=== PATIENT | female | born 1980 | race Caucasian/White ===

== ENCOUNTER 2020-02-15 22:15 | Emergency (ER) | payer BC ==
[2020-02-15 23:35] LABS: #Basophils 0.1 thou/uL (0.0-0.2); #Eosinphils 0.4 thou/uL (0.0-0.7); #Lymphocytes 2.6 thou/uL (1.20-3.40); #Monocytes 0.5 thou/uL (0.11-0.59); #Neutrophils 3.8 thou/uL (1.40-6.50); %Basophils 0.8 % (0.0-1.0); %Lymphocytes 35.8 % (21.0-51.0); %Monocytes 6.5 % (0.0-10.0); %Neutrophils 51.9 % (42.0-75.0); Hemoglobin 15.1 g/dL (12.0-16.0); Mean Corpuscular HGB CONC 34.1 g/dL (32.0-36.0); Mean Corpuscular Hemoglobin 31.4 pg (27.0-31.0); Mean Corpuscular Volume 92.1 fL (78.0-98.0); Mean Platelet Volume 6.2 fL (7.4-10.4); Platelet Count 301 thou/uL (130-400); RBC Distribution Width 11.6 % (11.5-14.5); Red Blood Cell (RBC) Count 4.81 mill/uL (4.20-5.40); White Blood Cell (WBC) Count 7.3 thou/uL (4.8-10.8)
[2020-02-15 23:49] LABS: ALT (SGPT) 19 U/L (8-55); AST (SGOT) 19 U/L (5-34); Alkaline Phosphatase 39 U/L (40-110); Anion Gap 13 mmol/L (10-20); BUN (Urea Nitrogen) 17 mg/dL (7.0-18.7); Bilirubin, Total 0.8 mg/dL (0.2-1.2); Calc. Creatinine Clearance 0 mL/min (70-130); Calcium 9.3 mg/dL (7.8-10.44); Carbon Dioxide 26 mmol/L (22-29); Chloride 106 mmol/L (98-107); Estimated GFR-MDRD 65; Globulin 2.4 g/dL (2.4-3.5); Glucose 97 mg/dL (70-105); Potassium 3.5 mmol/L (3.5-5.1); Protein, Total 6.4 g/dL (6.0-8.3); Sodium 141 mmol/L (136-145)
[2020-02-16] MEDS ORDERED: Acetaminophen 500 MG TAB ONE (00:40)
[2020-02-16] MEDS ORDERED: Ketorolac Tromethamine 30 MG/ML VIAL ONE (01:52)
[2020-02-16] MEDS ORDERED: Prochlorperazine 10 MG/2 ML VIAL IVP SCH (02:15)
--- NOTE | 2020-02-16 07:07 | RAD ---
SINGLE VIEW CHEST: Date: 02/15/2020 COMPARISON: None. HISTORY: Right leg pain and chest pain with dizziness. FINDINGS: Single view of the chest shows a normal sized cardiomediastinal silhouette. There is no evidence of c onsolidation, mass, or pleural effusion. The bones are unremarkable. IMPRESSION: No evidence of acute cardiopulmonary disease. POS: EAA
--- NOTE | 2020-02-16 08:24 | CT ---
PRELIMINARY REPORT/[facility]/EMERGENCY AFTER HOURS PROCEDURE EXAM: CTA Head and Neck with Intravenous Contrast. CLINICAL HISTORY: PT WATCHING TV, HAD SPONTANEOUS HEADACHE AND DIZZINESS FOLLOWED BY CHEST PAIN. TECHNIQUE: Axial CTA images of the head and neck performed with intravenous contrast. Two-dimensional MIP and/or three-dimensional MIP and volume rendered reformations were performed. Note: Per PQRS, the description of internal carotid artery percent stenosis, including 0 percent or n ormal exam, is based on [place] Symptomatic Carotid Endarterectomy Trial (NASCET) criteria. CONTRAST: With; ISOVUE 370,100mL COMPARISON: CT - CT BRAIN WO CON - 02/16/2020 12:02 AM COMMERCIAL PRODUCER FINDINGS: CTA NECK: COMMON CAROTID ARTERIES No significant stenosis. No dissection or occlusion. INTERNAL CAROTID ARTERIES No stenosis by NASCET criteria. No dissection or occlusion. VERTEBRAL ARTERIES No significant stenosis. No dissection or occlusion. CTA HEAD: ANTERIOR CEREBRAL ARTERIES No significant stenosis. No occlusion. No aneurysm. MIDDLE CEREBRAL ARTERIES No significant stenosis. No occlusion. No aneurysm. POSTERIOR CEREBRAL ARTERIES No significant stenosis. No occlusion. No aneurysm. BASILAR ARTERY No significant stenosis. No occlusion. No aneurysm. OTHER: SOFT TISSUES No acute finding. No masses or lymphadenopathy. Mild bilateral maxillary, right frontal and ethmoid sinus mucosal wall thickening. BONES No acute osseous abnormality. IMPRESSION: 1. Unremarkable CTA of the head and neck. 2. Mild right frontal, ethmoid, and bilateral maxillary sinus mucosal wall thickening. No air-fluid levels. ELECTRONICALLY SIGNED BY: Marvin Giron DO Feb 16, 2020 1:33:48 AM COMMERCIAL PRODUCER This report is intended for review by the ordering physician only, in accordance of law. If you recei ve this report in error, please call [facility] at [phone]. FINAL REPORT Final report by Dr. Catrer Emergency after-hours study CT ANGIOGRAM NECK WITH CONTRAST CT ANGIOGRAM BRAIN WITH CONTRAST: DATE: 02/16/2020 1:16 AM HISTORY: 39-year-old female with sudden onset headache and dizziness TECHNIQUE: After IV contrast injection, arterial bolus chasing technique scan performed from AP window to vertex of head. Coronal and sagittal 3-D MIP reconstructions. FINDINGS: All major arteries of neck and all major intracranial arteries of [place] appear normal. No evidence of dural venous sinus thrombosis. Mild mucosal thickening in bilateral maxillary sinuses. Otherwise normal. Agree with preliminary report by [facility]. IMPRESSION: Normal. Transcribed Date/Time: 02/16/2020 8:28 AM
--- NOTE | 2020-02-16 08:29 | CT ---
PRELIMINARY REPORT/[facility]/EMERGENCY AFTER HOURS PROCEDURE EXAM: CT Head Without Intravenous Contrast. CLINICAL HISTORY: Pt presents with chest pain and dizziness// TECHNIQUE: Axial computed tomography images of the head/brain without intravenous contrast. COMPARISON: None provided. FINDINGS: BRAIN: No acute intraparenchymal hemorrhage. No mass lesion. No CT evidence for acute territorial infarct. N o midline shift or extra-axial collection. VENTRICLES: No hydrocephalus. ORBITS: The orbits are unremarkable. SINUSES AND MASTOIDS: The paranasal sinuses and mastoid air cells are clear. SOFT TISSUES: No significant facial or scalp soft tissue swelling evident. No radiopaque foreign body is seen. BONES: No acute skull fracture. IMPRESSION: No acute intracranial abnormality. ELECTRONICALLY SIGNED BY: Marvin Giron DO Feb 16, 2020 12:11:43 AM SAFE DEPOSIT ATTENDANT This report is intended for review by the ordering physician only, in accordance of law. If you recei ve this report in error, please call [facility] at [phone]. FINAL REPORT Exam: Head CT without contrast HISTORY: Dizziness. Pain. COMPARISON: none FINDINGS: Hemorrhage: No intraparenchymal hemorrhage or extra-axial hematoma. Brain parenchyma: Cortical gonzalez-white matter differentiation is preserved. No mass effect or midline shift. Basilar cisterns are patent. Ventricular system: Ventricles and sulci are patent and symmetric. Calvarium: Intact. Sinuses and mastoid air cells: Adequate aeration. IMPRESSION: 1. This report is in agreement with initial report by [facility]. 2. No acute intracranial process. Transcribed Date/Time: 02/16/2020 8:36 AM
--- NOTE | 2020-02-16 15:37 | CT ---
PRELIMINARY REPORT/[facility]/EMERGENCY AFTER HOURS PROCEDURE EXAM: CTA Head and Neck with Intravenous Contrast. CLINICAL HISTORY: PT WATCHING TV, HAD SPONTANEOUS HEADACHE AND DIZZINESS FOLLOWED BY CHEST PAIN. TECHNIQUE: Axial CTA images of the head and neck performed with intravenous contrast. Two-dimensional MIP and/or three-dimensional MIP and volume rendered reformations were performed. Note: Per PQRS, the description of internal carotid artery percent stenosis, including 0 percent or n ormal exam, is based on [place] Symptomatic Carotid Endarterectomy Trial (NASCET) criteria. CONTRAST: With; ISOVUE 370,100mL COMPARISON: CT - CT BRAIN WO CON - 02/16/2020 12:02 AM MEDIA PLANNER FINDINGS: CTA NECK: COMMON CAROTID ARTERIES No significant stenosis. No dissection or occlusion. INTERNAL CAROTID ARTERIES No stenosis by NASCET criteria. No dissection or occlusion. VERTEBRAL ARTERIES No significant stenosis. No dissection or occlusion. CTA HEAD: ANTERIOR CEREBRAL ARTERIES No significant stenosis. No occlusion. No aneurysm. MIDDLE CEREBRAL ARTERIES No significant stenosis. No occlusion. No aneurysm. POSTERIOR CEREBRAL ARTERIES No significant stenosis. No occlusion. No aneurysm. BASILAR ARTERY No significant stenosis. No occlusion. No aneurysm. OTHER: SOFT TISSUES No acute finding. No masses or lymphadenopathy. Mild bilateral maxillary, right frontal and ethmoid sinus mucosal wall thickening. BONES No acute osseous abnormality. IMPRESSION: 1. Unremarkable CTA of the head and neck. 2. Mild right frontal, ethmoid, and bilateral maxillary sinus mucosal wall thickening. No air-fluid levels. ELECTRONICALLY SIGNED BY: Marvin Giron DO Feb 16, 2020 1:33:48 AM MEDIA PLANNER This report is intended for review by the ordering physician only, in accordance of law. If you recei ve this report in error, please call [facility] at [phone]. FINAL REPORT Final report by Dr. Carter Emergency after-hours study CT ANGIOGRAM NECK WITH CONTRAST CT ANGIOGRAM BRAIN WITH CONTRAST: DATE: 02/16/2020 1:16 AM HISTORY: 39-year-old female with sudden onset headache and dizziness TECHNIQUE: After IV contrast injection, arterial bolus chasing technique scan performed from AP window to vertex of head. Coronal and sagittal 3-D MIP reconstructions. FINDINGS: All major arteries of neck and all major intracranial arteries of [place] appear normal. No evidence of dural venous sinus thrombosis. Mild mucosal thickening in bilateral maxillary sinuses. Otherwise normal. Agree with preliminary report by [facility]. IMPRESSION: Normal. Transcribed Date/Time: 02/16/2020 3:36 PM
== END 2020-02-16 02:50 | disposition home or self-care (01) ==
LOC: ERS 22:15
DX: R51.9 Headache, unspecified (principal); R07.9 Chest pain, unspecified
CPT/HCPCS: 70450; 70496; 70498; 71045; 80053; 84484; 85025; 85379; 93005; 96374; J0780; J1885

== ENCOUNTER 2020-02-17 16:23 | Outpatient (CLI) | payer BC ==
--- NOTE | 2020-02-17 17:07 | ULT ---
RIGHT LOWER EXTREMITY VENOUS DUPLEX EXAM: 02/17/20 Deep veins of the right lower extremity evaluated with ultrasound and Doppler with color Doppler, spe ctral analysis and compression. INDICATIONS: Elevated D-dimer. Right lower extremity pain and edema. Deep veins of the right lower extremity show normal blood flow and compression. No evidence of DVT. IMPRESSION: No evidence of right lower extremity DVT. POS: AGW
== END 2020-02-17 16:24 | disposition home or self-care (01) ==
LOC: BICULT 16:23
PROVIDERS: ATTEND Family Medicine
DX: M79.604 Pain in right leg (principal)

== ENCOUNTER 2021-02-11 14:26 | Outpatient (CLI) | payer BC | END 2021-02-11 14:27 | disposition home or self-care (01) | LOC: BICCT 14:26 | PROVIDERS: ATTEND Family Medicine | DX: R51.9 Headache, unspecified (principal); R42 Dizziness and giddiness; R29.898 Other symptoms and signs involving the musculoskeletal system | CPT/HCPCS: 70450 ==

== ENCOUNTER 2021-02-21 11:58 | Outpatient (CLI) | payer BC | END 2021-02-21 11:59 | disposition home or self-care (01) | LOC: SCSMRI 11:58 | PROVIDERS: ATTEND Psychiatry & Neurology Epilepsy | DX: M47.22 Other spondylosis with radiculopathy, cervical region (principal); M50.10 Cervical disc disorder with radiculopathy, unspecified cervical region; M48.02 Spinal stenosis, cervical region | CPT/HCPCS: 72156 ==

== ENCOUNTER 2021-05-17 09:17 | Day surgery (SDC) | payer BC ==
[2021-05-14 13:58] VITALS: BMI 26.5
[2021-05-17] MEDS ORDERED: Midazolam HCl 2 mg/2 ml Vial ONE (10:21)
[2021-05-17] MEDS ORDERED: Fentanyl 250 MCG/5 ML VIAL ONE ×2 (10:46→12:40)
[2021-05-17] MEDS ORDERED: Xylocaine 1% w/ Epi 1:100K 10 ML VIAL ONE (10:57)
[2021-05-17] MEDS ORDERED: Bupivacaine 0.25% HCL 30 ML VIAL ONE (10:57)
[2021-05-17] MEDS ORDERED: Iothalamate Meglumine 60% 50 ML VIAL FS ONE (10:57)
[2021-05-17] MEDS ORDERED: Ondansetron PF 4 MG/2 ML Vial ONE (11:27)
[2021-05-17] MEDS ORDERED: Lidocaine 1% PF 5 ML VIAL ONE (11:27)
[2021-05-17] MEDS ORDERED: Dexamethasone 20 MG/5 ML VIAL ONE (11:27)
[2021-05-17] MEDS ORDERED: Rocuronium Bromide 10 MG/ML (10ML VIAL) ONE (11:27)
[2021-05-17] MEDS ORDERED: ePHEDrine 50 MG/ML VIAL ONE (11:27)
[2021-05-17] MEDS ORDERED: PROPOFOL 200 MG/20 ML VIAL ONE (11:27)
[2021-05-17] MEDS ORDERED: Glycopyrrolate 0.2 MG/ML 5 ML SYRINGE ONE (11:27)
[2021-05-17] MEDS ORDERED: Ketorolac Tromethamine 30 MG/ML VIAL ONE (11:27)
[2021-05-17] MEDS ORDERED: Promethazine HCl 25 MG/ML VIAL ONE (14:21)
[2021-05-17] MEDS ORDERED: HYDROcodone/Acetaminophen 5/325 mg Tablet ONE (15:04)
== END 2021-05-17 15:43 | disposition home or self-care (01) ==
LOC: SDC 09:17
PROVIDERS: ATTEND Surgery
PROC: BF121ZZ Fluoroscopy of Gallbladder using Low Osmolar Contrast (ICD-10-PCS; principal; 2021-05-17)
PROC: 0FT44ZZ Resection of Gallbladder, Percutaneous Endoscopic Approach (ICD-10-PCS; principal; 2021-05-17)
DX: K80.10 Calculus of gallbladder with chronic cholecystitis without obstruction (principal); B00.1 Herpesviral vesicular dermatitis; Z79.899 Other long term (current) drug therapy
CPT/HCPCS: 47532; 88304; C1713; J2250; J2550; J3010; Q9961-U8; S0020